=== PATIENT | female | born 1930 | race Caucasian/White ===

== ENCOUNTER 2016-08-23 18:45 | Emergency (ER) | payer MEDICARE, BC ==
[2016-08-23 18:45] VITALS: BMI 23.6
--- NOTE | 2016-08-23 20:26 | C.PDOC ---
History Of Present Illness 85 y/o female presents to the ED for evaluation of pain and itching to the inside and outside of left ear which began around 3 days ago. Patient also reports pain radiating to the side of her neck. She denies fever, chills, recent trauma/injury. Time Seen by Provider: 08/23/16 19:37 Chief Complaint (Nursing): ENT Problem History Per: Patient History/Exam Limitations: None Onset/Duration Of Symptoms: Days (3) Current Symptoms Are (Timing): Still Present Quality (Ear): Pain W/Touch Past Medical History Reviewed: Historical Data, Nursing Documentation, Vital Signs Vital Signs: Last Vital Signs Temp 97.6 F 08/23/16 20:30 Pulse 65 08/23/16 20:30 Resp 20 08/23/16 20:30 BP 171/82 H 08/23/16 20:30 Pulse Ox 99 08/23/16 22:48 - Medical History PMH: Atrial Fibrillation, HTN, Hypercholesterolemia Denies: Chronic Kidney Disease Family History: States: Unknown Family Hx - Social History Hx Tobacco Use: No Hx Alcohol Use: No Hx Substance Use: No - Immunization History Hx Tetanus Toxoid Vaccination: No Hx Influenza Vaccination: Yes Hx Pneumococcal Vaccination: No Review Of Systems Constitutional: Negative for: Fever, Chills ENT: Positive for: Ear Pain (left ) Musculoskeletal: Positive for: Neck Pain Physical Exam - Physical Exam Appears: Non-toxic, No Acute Distress Skin: Normal Color, Warm, Dry Head: Atraumatic, Normacephalic Eye(s): bilateral: Normal Inspection Ear(s): Left: Other (tm appears normal no erythema in canal., small area dry skin in canal, pinna/helix appear normal. ), Right: Normal Nose: Normal, No Discharge Oral Mucosa: Moist Throat: Normal, No Erythema, No Exudate Neck: Normal ROM, Supple Extremity: Normal ROM Gait: Steady ED Course And Treatment O2 Sat by Pulse Oximetry: 99 (on RA) Pulse Ox Interpretation: Normal Medical Decision Making Medical Decision Making: Pt is resting comfortably and showing no signs of distress. Patient is stable for discharge with Rx and is advised to f/u with her PMD within 1-2 days for further evaluation. Disposition Counseled Patient/Family Regarding: Need For Followup, Rx Given - Disposition Referrals: Lisa De La Cruz MD [Staff Provider] - Disposition: HOME/ ROUTINE Disposition Time: 20:22 Condition: STABLE Additional Instructions: Follow up with your doctor on Thursday. Do not stick anything in ear. Apply hydrocortisone cream to outside of ear to help with itch and take Claritin as directed. Prescriptions: Hydrocortisone 1% Cream [Cortizone 1% Cream] 30 gm TOP BID #1 tube Loratadine [Claritin] 10 mg PO DAILY #10 tab - Clinical Impression Clinical Impression: Ear itching - PA / POLE CUTTER / Resident Statement MD/DO has reviewed & agrees with the documentation as recorded. - Scribe Statement The provider has reviewed the documentation as recorded by the Scribe (Alda Panda) All medical record entries made by the Scribe were at my direction and personally dictated by me. I have reviewed the chart and agree that the record accurately reflects my personal performance of the history, physical exam, medical decision making, and the department course for this patient. I have also personally directed, reviewed, and agree with the discharge instructions and disposition.
[2016-08-23 20:32] VITALS: BP 171/82; PULSE 65; RESP 20; TEMP 97.6
[2016-08-23 20:41] VITALS: O2SAT 99
== END 2016-08-23 20:33 | disposition home or self-care (01) ==
LOC: C.ER 18:45
DX: L29.9 Pruritus, unspecified (principal)

== ENCOUNTER 2016-10-12 08:54 | Emergency (ER) | payer MEDICARE, BC ==
[2016-10-12 08:55] VITALS: BMI 23.6
[2016-10-12 10:08] VITALS: TEMP 97.5; O2SAT 99
[2016-10-12 10:15] VITALS: BP 122/74; PULSE 78; RESP 16
== END 2016-10-12 10:15 | disposition home or self-care (01) ==
LOC: C.ER 08:54
DX: S69.92XA Unspecified injury of left wrist, hand and finger(s), initial encounter (principal); X58.XXXA Exposure to other specified factors, initial encounter; Y93.89 Activity, other specified; Y92.009 Unspecified place in unspecified non-institutional (private) residence as the place of occurrence of the external cause

== ENCOUNTER 2017-09-13 22:27 | Emergency (ER) | payer MEDICARE, BC ==
[2017-09-13 22:28] VITALS: BMI 23.6
[2017-09-13 22:44] VITALS: RESP 18
[2017-09-13] MEDS ORDERED: Oxycodone/Acetaminophen 5/325 mg Tab PO STA (23:15)
--- NOTE | 2017-09-13 23:15 | C.PDOC ---
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 Patient reports she does not need any assistance ambulating. Patient states that while coming down stairs she misses the last step, falling and landing on her left hip. Patient is unable to bear weight on her left hip. Patient is also c/o mid upper back pain. Patient denies LOC, headache, head injury, nausea, vomit, dizziness, blurry vision, weakness, numbness. Time Seen by Provider: 09/13/17 23:11 Chief Complaint (Nursing): Lower Extremity Problem/Injury History Per: Patient History/Exam Limitations: no limitations Onset/Duration Of Symptoms: Hrs Current Symptoms Are (Timing): Still Present Recent travel outside of the [place]: No Additional History Per: Patient - Hip Description Of Injury: Fell Currently Unable To: Bear Weight Past Medical History Reviewed: Historical Data, Nursing Documentation, Vital Signs Vital Signs: Last Vital Signs Temp 98.1 F 09/14/17 01:53 Pulse 72 09/14/17 01:53 Resp 18 09/14/17 01:53 BP 166/76 H 09/14/17 01:53 Pulse Ox 98 09/14/17 01:53 - Medical History PMH: Atrial Fibrillation, CVA (20 years ago), HTN, Hypercholesterolemia Denies: Chronic Kidney Disease Surgical History: No Surg Hx Family History: States: Unknown Family Hx - Social History Hx Tobacco Use: No Hx Alcohol Use: No Hx Substance Use: No - Immunization History Hx Tetanus Toxoid Vaccination: No Hx Influenza Vaccination: Yes (2016) Hx Pneumococcal Vaccination: No Review Of Systems Constitutional: Negative for: Fever, Chills Eyes: Negative for: Vision Change Cardiovascular: Negative for: Chest Pain, Palpitations Respiratory: Negative for: Cough, Shortness of Breath Gastrointestinal: Negative for: Vomiting, Abdominal Pain Musculoskeletal: Positive for: Back Pain, Leg Pain Skin: Negative for: Rash Neurological: Negative for: Weakness, Numbness Physical Exam - Physical Exam Appears: Non-toxic, No Acute Distress Skin: Normal Color, Warm, Dry Head: Atraumatic, Normacephalic Eye(s): bilateral: Normal Inspection, PERRL, EOMI Oral Mucosa: Moist Neck: Normal ROM, No Midline Cervical Tenderness, Supple Chest: Symmetrical Cardiovascular: Rhythm Regular Respiratory: Normal Breath Sounds, No Rales, No Rhonchi, No Wheezing Gastrointestinal/Abdominal: Soft, No Tenderness, No Guarding, No Rebound Back: Paraspinal Tenderness (thoracic) Extremity: No Normal ROM (left hip due to pain), Tenderness (medial aspect of left hip), Capillary Refill (< 2 seconds), No Swelling, Other (unable to lift left thihg off bed due to pain) Pulses: Left Dorsalis Pedis: Normal, Right Dorsalis Pedis: Normal Neurological/Psych: Oriented x3, Normal Speech, Normal Motor, Normal Sensation Gait: Unable To Assess ED Course And Treatment - Laboratory Results Result Diagrams: 09/14/17 00:10 09/14/17 00:10 O2 Sat by Pulse Oximetry: 99 (ON RA) Pulse Ox Interpretation: Normal - CT Scan/US Ct hip Other Rad Studies (CT/US): Read By Radiologist, Radiology Report Reviewed CT/US Interpretation: EXAM: CT Left Lower Extremity Without Intravenous Contrast, Hip. EXAM DATE/TIME: 09/13/2017 11:51 PM. CLINICAL HISTORY: 86 years old, female; Injury or trauma; Fall; Initial encounter; Sprain or strain; Hip; Left; Additional. info: Pain. TECHNIQUE: Axial computed tomography images of the left hip without intravenous contrast. All CT scans at this. facility use at least one of these dose optimization techniques: automated exposure control; mA. and/or kV adjustment per patient size (includes targeted exams where dose is matched to clinical. indication); or iterative reconstruction. COMPARISON: No relevant prior studies available. FINDINGS: Bones/joints: Few calcifications or ossific fragments adjacent the left ischial tuberosity may reflect. degenerative changes or an avulsion fracture. No dislocation. Soft tissues: Unremarkable. IMPRESSION: Few calcifications or ossific fragments adjacent the left ischial tuberosity may reflect degenerative. changes or an avulsion fracture. Otherwise no acute left hip findings. Thank you for allowing us to participate in the care of your patient. Dictated and Authenticated by: Alex Alegria MD. 09/14/2017 1: 09 AM Eastern Time ([place] & [place]) Medical Decision Making Medical Decision Making: Impression: rule out hip fracture, pelvic fracture Plan: * CT hip * EKG * Labs * Percocet 1 tab PO * IV fluids * UA * Left hip X-Ray Patient is able to walk in the ED with no difficulty ambulating. Patient will be D/C home with hip contusion and pain medications Disposition - Disposition Referrals: Lisa De La Cruz MD [Primary Care Provider] - Disposition: HOME/ ROUTINE Disposition Time: 03:13 Condition: FAIR Prescriptions: oxyCODONE/Acetaminophen 1/2TAB [Percocet 5-325 mg HALF TAB] 0.5 ea PO QID PRN # 12 tab PRN Reason: Pain, Mild (1-3) Instructions: Hip Pointer, Contusion (DC) Forms: [email or web address] (Slovenian) Print Language: CHINESE - Clinical Impression Clinical Impression: Tension headache, Dizziness of unknown cause - Scribe Statement The provider has reviewed the documentation as recorded by the Scribe Rickie Moore All medical record entries made by the Scribe were at my direction and personally dictated by me. I have reviewed the chart and agree that the record accurately reflects my personal performance of the history, physical exam, medical decision making, and the department course for this patient. I have also personally directed, reviewed, and agree with the discharge instructions and disposition.
[2017-09-13] MEDS ORDERED: Oxycodone/Acetaminophen 5/325 mg Tab ONE (23:45)
[2017-09-13] MEDS ORDERED: Sodium Chloride 0.9% 1,000 ML IV ONE (23:52)
[2017-09-14 00:13] LABS: BASO % 0.5 % (0.0-2.0); EOS % 0.3 % (0.0-4.0); HEMOGLOBIN 12.3 g/dL (11.0-16.0); LYMPH # 0.8 K/uL (1.0-4.3); LYMPH % 10.1 % (20.0-40.0); MEAN CELL VOLUME 90.1 fL (81.0-99.0); MEAN CORPUSCULAR HEMOGLOBIN 30.9 pg (27.0-31.0); MEAN CORPUSCULAR HGB CONC 34.3 g/dL (33.0-37.0); MEAN PLATELET VOLUME 8.2 fL (7.2-11.7); MONO # 0.5 K/uL (0.0-0.8); MONO % 5.8 % (0.0-10.0); NEUT # 6.7 K/uL (1.8-7.0); NEUT % 83.3 % (50.0-75.0); RBC 3.99 Mil/uL (3.80-5.20)
[2017-09-14 00:25] LABS: ALB/GLOB RATIO 1.6 (1.0-2.1); ALBUMIN 4.5 g/dL (3.5-5.0); CALCIUM 8.9 mg/dl (8.6-10.4)
[2017-09-14 01:54] VITALS: BP 166/76; PULSE 72; TEMP 98.1
[2017-09-14 03:14] VITALS: O2SAT 99
--- NOTE | 2017-09-14 10:32 | CT ---
CT left hip History: Hip pain. Comparison: None available. Technique: Real-time sonography was performed through the left hip without the use of intravenous contrast. Subsequently, sagittal and coronal reformatted images were obtained. This CT exam was performed using one or more of the following dose reduction techniques: Automated exposure control, adjustment of the mA and/or kV according to patient size, and/or use of iterative reconstruction technique. Findings: Left hip: Moderate degenerative changes with joint space narrowing and subchondral sclerosis. No evidence for acute displaced fracture or dislocation. Productive change and or enthesopathic change noted adjacent to the greater tuberosity. Limited evaluation of the remainder of the bony pelvis demonstrates productive change at the level pubic symphysis. In addition, there is prominent productive change with calcifications and or ossific fragments adjacent to the left ischial tuberosity which may be the sequelae of degenerative changes; however, avulsion injury cannot entirely be excluded. This may be better evaluated MRI if clinically indicated. Impression: Degenerative changes of the left hip. Prominent productive change with calcifications and or ossific fragments adjacent to the left ischial tuberosity which may be the sequelae of degenerative changes; however, avulsion injury cannot entirely be excluded. This may be better evaluated MRI if clinically indicated. These findings were preliminarily reported at 1:09 a.m. on 09/14/[address] Alex Alegria from [facility].
--- NOTE | 2017-09-14 10:46 | RAD ---
PROCEDURE: Radiographs of the pelvis and bilateral hips HISTORY: trauma COMPARISON: Pelvis and right hip radiographs dated 12/24/2012. FINDINGS: BONES: Pelvis: Unremarkable. Right hip:Unremarkable. Left hip:Unremarkable. JOINTS: Right hip: Hip narrowing. Left hip: Hip narrowing. Sacroiliac Joints: Unremarkable. Pubic symphysis: Unremarkable. SOFT TISSUES: Normal. OTHER FINDINGS: None. IMPRESSION: No acute fracture. Bilateral hip narrowing.
== END 2017-09-14 01:53 | disposition home or self-care (01) ==
LOC: SUPCPDRO 22:27 → C.ER 22:27
DX: M25.552 Pain in left hip (principal); M54.5 Low back pain; W10.9XXA Fall (on) (from) unspecified stairs and steps, initial encounter
CPT/HCPCS: 73521; 73700; 80053; 85025; 99285; J7030

== ENCOUNTER 2017-09-21 10:13 | Emergency (ER) | payer MEDICARE, BC ==
[2017-09-21 10:13] VITALS: BMI 23.6
[2017-09-21 10:23] VITALS: RESP 18
--- NOTE | 2017-09-21 11:18 | C.PDOC ---
History Of Present Illness 86 year old female sent in by Dr. De La Cruz for a an MRI. Patient was unable to get make it to outpatient MRI because she could not walk due to pain so she was referred to the ER. Denies weakness or numbness. Patient is s/p trip and fall on step, was seen on 09/17/17 where she had a negative hip x-ray. Time Seen by Provider: 09/21/17 11:09 Chief Complaint (Nursing): Hip Pain History Per: Patient History/Exam Limitations: no limitations Onset/Duration Of Symptoms: Days Current Symptoms Are (Timing): Still Present Recent travel outside of the [place]: No - Hip Description Of Injury: Fell, Tripped Past Medical History Reviewed: Historical Data, Nursing Documentation, Vital Signs Vital Signs: Last Vital Signs Temp 97.9 F 09/21/17 10:21 Pulse 71 09/21/17 10:21 Resp 18 09/21/17 10:21 BP 118/57 L 09/21/17 10:21 Pulse Ox 97 09/21/17 11:24 - Medical History PMH: Atrial Fibrillation, CVA (20 years ago), HTN, Hypercholesterolemia Family History: States: Unknown Family Hx - Social History Hx Tobacco Use: No Hx Alcohol Use: No Hx Substance Use: No - Immunization History Hx Tetanus Toxoid Vaccination: No Hx Influenza Vaccination: Yes (2016) Hx Pneumococcal Vaccination: No Review Of Systems Constitutional: Negative for: Fever, Chills Gastrointestinal: Negative for: Nausea, Vomiting Musculoskeletal: Positive for: Other (Hip pain) Neurological: Negative for: Weakness, Numbness Physical Exam - Physical Exam Appears: Non-toxic Skin: Normal Color, Warm, Dry Head: Atraumatic, Normacephalic Eye(s): bilateral: Normal Inspection Oral Mucosa: Moist Neck: Normal, Supple Chest: Symmetrical, No Tenderness Cardiovascular: Rhythm Regular Respiratory: Normal Breath Sounds, No Rales, No Rhonchi, No Wheezing Gastrointestinal/Abdominal: Soft, No Tenderness Back: No Vertebral Tenderness, No Paraspinal Tenderness Neurological/Psych: Oriented x3, Normal Speech ED Course And Treatment O2 Sat by Pulse Oximetry: 97 (Room air) Pulse Ox Interpretation: Normal Medical Decision Making Medical Decision Making: Plan: * MRI Disposition Counseled Patient/Family Regarding: Diagnosis, Need For Followup - Disposition Disposition: HOME/ ROUTINE Disposition Time: 11:47 Condition: STABLE Forms: [employer] (Chinese) - Clinical Impression Clinical Impression: Hip pain - Scribe Statement The provider has reviewed the documentation as recorded by the Scribe Jae Garland All medical record entries made by the Scribe were at my direction and personally dictated by me. I have reviewed the chart and agree that the record accurately reflects my personal performance of the history, physical exam, medical decision making, and the department course for this patient. I have also personally directed, reviewed, and agree with the discharge instructions and disposition. Physician Patient Turnover Patient Signed Over To: Nicko Phillips Handoff Comments: left hip pain, pending MRI
[2017-09-21 13:33] VITALS: BP 146/76; PULSE 60; TEMP 97.6; O2SAT 96
--- NOTE | 2017-09-21 13:48 | MRI ---
MRI right hip History: Hip pain. Injury. Comparison: CT left hip dated 09/14/2017 Technique: Multi-echo multiplanar sequences were performed through the right hip without the use of intravenous contrast. Findings: Limited evaluation of the bony pelvis demonstrates signal abnormality with reactive edema and patchy decreased T1 signal seen at the level of the left superior pubic bone near the pubic symphysis as well as within the mid inferior left pubic bone suggestive for nondisplaced fractures. Adjacent reactive edema within the musculature at that level suggestive for muscle strain and or partial tearing. Correlation with left hip MRI as well as CT scan of the bony pelvis be helpful to better evaluate the osseous anatomy at this level. Mild reactive edema with some patchy decreased T1 signal and increased STIR signal noted at the level of the left iliac bone near the left SI joint. This is nonspecific. Osseous injury at this level cannot be excluded. Correlation with bony pelvic MRI may be helpful for further evaluation of this region if clinically indicated. Right hip: Moderate degenerative changes with joint space narrowing as well as cartilage thinning and loss of the right hip. Fraying with increased signal at the undersurface of the right anterior acetabular labrum suggestive for a tear. Right iliopsoas, hamstring tendon origin, and rectus femoris tendon attachments appear preserved. Moderate insertional tendinopathy of the right gluteus tendon attachments on the greater trochanter. Small right hip joint effusion. Limited evaluation of the left hip demonstrates a moderate left hip joint effusion with associated moderate insertional tendinopathy of the left gluteus tendon attachments on the greater trochanter. Moderate degenerative changes of the left hip with joint space narrowing and cartilage thinning. Degenerative changes in the lower lumbar spine. Impression: 1. Limited evaluation of the bony pelvis demonstrates signal abnormality with reactive edema and patchy decreased T1 signal seen at the level of the left superior pubic bone near the pubic symphysis as well as within the mid inferior left pubic bone suggestive for nondisplaced fractures. Adjacent reactive edema within the musculature at that level suggestive for muscle strain and or partial tearing. Correlation with left hip MRI as well as CT scan of the bony pelvis be helpful to better evaluate the osseous anatomy at this level. 2. Mild reactive edema with some patchy decreased T1 signal and increased STIR signal noted at the level of the left iliac bone near the left SI joint. This is nonspecific. Osseous injury at this level cannot be excluded. Correlation with bony pelvic MRI may be helpful for further evaluation of this region if clinically indicated. 3. Moderate degenerative changes with joint space narrowing as well as cartilage thinning and loss of the right hip. 4. Fraying with increased signal at the undersurface of the right anterior acetabular labrum suggestive for a tear. 5. Moderate insertional tendinopathy of the right gluteus tendon attachments on the greater trochanter. 6. Small right hip joint effusion. 7. Limited evaluation of the left hip demonstrates a moderate left hip joint effusion with associated moderate insertional tendinopathy of the left gluteus tendon attachments on the greater trochanter. Moderate degenerative changes of the left hip with joint space narrowing and cartilage thinning. 8. Degenerative changes in the lower lumbar spine. These findings were discussed with Dr. Mclean at 1:38 p.m. on 09/21/2017.
== END 2017-09-21 14:48 | disposition home or self-care (01) ==
LOC: C.ER 10:13
DX: S32.509 Unspecified fracture of unspecified pubis (principal); W01.0XXD Fall on same level from slipping, tripping and stumbling without subsequent striking against object, subsequent encounter

== ENCOUNTER 2018-01-06 11:41 | Observation (INO) | payer MEDICARE, BC ==
[2018-01-06 12:10] VITALS: BMI 27.1
--- NOTE | 2018-01-06 12:55 | C.PDOC ---
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 Patient is on Coumadin. Denies loc, headache, vision changes, na usea, vomiting, change in sensation or any other complaints at this time. - HPI Time Seen by Provider: 01/06/18 12:06 Chief Complaint (Nursing): Trauma History Per: Patient History/Exam Limitations: no limitations Onset/Duration Of Symptoms: Days Past Medical History Reviewed: Historical Data, Nursing Documentation, Vital Signs Vital Signs: Last Vital Signs Temp 97.5 F L 01/06/18 11:49 Pulse 67 01/06/18 11:49 Resp 18 01/06/18 11:49 BP 181/70 H 01/06/18 11:49 Pulse Ox 100 01/06/18 11:49 - Medical History PMH: Atrial Fibrillation, CVA (20 years ago), HTN, Hypercholesterolemia Surgical History: No Surg Hx Family History: States: No Known Family Hx - Social History Hx Tobacco Use: No Hx Alcohol Use: No Hx Substance Use: No - Immunization History Hx Tetanus Toxoid Vaccination: No Hx Influenza Vaccination: Yes (2016) Hx Pneumococcal Vaccination: Yes Review Of Systems Constitutional: Negative for: Fever, Weakness Eyes: Negative for: Vision Change ENT: Negative for: Ear Pain, Ear Discharge Cardiovascular: Negative for: Chest Pain, Palpitations Respiratory: Negative for: Cough Gastrointestinal: Negative for: Nausea, Vomiting Genitourinary: Negative for: Dysuria Skin: Positive for: Other (abrasions to forehead, nose and right cheek). Negative for: Rash Neurological: Negative for: Weakness, Numbness, Dizziness Physical Exam - Physical Exam Appears: Non-toxic, No Acute Distress Skin: Warm, Dry, No Rash Head: Abrasion (right forehead and right cheek), No Laceration, Other (No blount or raccoon sign) Eye(s): bilateral: Normal Inspection, PERRL, EOMI Ear(s): Bilateral: Normal (No hemotympanum) Nose: No Deformity, Tenderness (nasal bridge), Other (swelling and ecchymosis to nasal bridge. Multiple abrasions to nasal bridge) Oral Mucosa: Moist Throat: No Erythema, No Exudate Neck: Normal ROM, Supple Chest: Symmetrical, No Tenderness Cardiovascular: Rhythm Regular, No Friction Rub, No Murmur Respiratory: Normal Breath Sounds, No Rales, No Rhonchi, No Wheezing Gastrointestinal/Abdominal: Soft, No Tenderness, No Guarding, No Rebound Back: Normal Inspection, No CVA Tenderness Extremity: Normal ROM, No Swelling Neurological/Psych: Oriented x3, Normal Speech, Normal Cognition, Normal Cranial Nerves, Normal Motor, Normal Sensation Gait: Steady ED Course And Treatment - Laboratory Results Result Diagrams: 01/06/18 13:07 01/06/18 13:07 O2 Sat by Pulse Oximetry: 100 (RA) Pulse Ox Interpretation: Normal Medical Decision Making Medical Decision Making: Case was discussed with Dr. De La Cruz who states that Dr. Vasquez is coverin. The case was discussed with Dr. Vasquez who agrees to admit the patient to his service for head injury obseration as the patient is on Coumadin and should have a repeat scan within 6-8 hours. 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 - Scribe Statement The provider has reviewed the documentation as recorded by the Loydibmaye Deleon All medical record entries made by the Loydibmaye were at my direction and personally dictated by me. I have reviewed the chart and agree that the record accurately reflects my personal performance of the history, physical exam, medical decision making, and the department course for this patient. I have also personally directed, reviewed, and agree with the discharge instructions and disposition.
[2018-01-06 13:23] LABS: ALB/GLOB RATIO 1.4 (1.0-2.1); ALBUMIN 4.8 g/dL (3.5-5.0); BASO % 0.5 % (0.0-2.0); CALCIUM 9.4 mg/dl (8.6-10.4); EOS # 0.1 K/uL (0.0-0.7); EOS % 1.9 % (0.0-4.0); HEMOGLOBIN 14.2 g/dL (11.0-16.0); LYMPH # 1.4 K/uL (1.0-4.3); MEAN CELL VOLUME 90.2 fL (81.0-99.0); MEAN CORPUSCULAR HEMOGLOBIN 30.8 pg (27.0-31.0); MEAN CORPUSCULAR HGB CONC 34.2 g/dL (33.0-37.0); MEAN PLATELET VOLUME 8.2 fL (7.2-11.7); MONO # 0.4 K/uL (0.0-0.8); MONO % 5.9 % (0.0-10.0); NEUT # 4.3 K/uL (1.8-7.0); NEUT % 69.7 % (50.0-75.0); NRBC % 0.1 % (0.0-2.0); RBC 4.62 Mil/uL (3.80-5.20); RED CELL DISTRIBUTION WIDTH 14.6 % (11.5-14.5); WHITE BLOOD COUNT 6.2 K/uL (4.8-10.8)
[2018-01-06 13:48] LABS: PROTHROMBIN TIME 22.4 SECONDS (9.7-12.2)
--- NOTE | 2018-01-06 14:35 | CT ---
Date of service: 01/06/2018 PROCEDURE: CT HEAD WITHOUT CONTRAST. HISTORY: head injury, r/o bleed COMPARISON: None available. TECHNIQUE: Axial computed tomography images were obtained through the head/brain without intravenous contrast. Radiation dose: Total exam DLP = 835.36 mGy-cm. This CT exam was performed using one or more of the following dose reduction techniques: Automated exposure control, adjustment of the mA and/or kV according to patient size, and/or use of iterative reconstruction technique. FINDINGS: HEMORRHAGE: No intracranial hemorrhage. BRAIN: There are moderate chronic microangiopathic changes. There is an old infarction in the left occipital lobe and an old infarction in the left cerebellar hemisphere with there is no mass, mass effect or abnormal extra-axial fluid collection. There is no territorial infarction. The midline sagittal structures are normal.There are coarse atherosclerotic calcifications in the cavernous carotid arteries. VENTRICLES: There is mild age-related global parenchymal volume loss and proportionate enlargement of the ventricles and cortical sulci. CALVARIUM: There is no calvarial fracture or extracranial soft tissue swelling. PARANASAL SINUSES: Predominantly clear. MASTOID AIR CELLS: The right mastoid air cells are underdeveloped. The left mastoid air cells are normal. OTHER FINDINGS: None. IMPRESSION: No acute intracranial abnormality. Moderate chronic microangiopathic changes and mild age-related global parenchymal volume loss. 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
--- NOTE | 2018-01-06 14:40 | CT ---
Date of service: 01/06/2018 PROCEDURE: CT MAXILLOFACIAL BONES WITHOUT CONTRAST HISTORY: fall, facial injury to nose and right maxillar COMPARISON: None available. TECHNIQUE: Contiguous axial CT images of the maxillofacial bones were obtained. Coronal and sagittal reformats were generated. Radiation dose: Total exam DLP = 730.8 mGy-cm. This CT exam was performed using one or more of the following dose reduction techniques: Automated exposure control, adjustment of the mA and/or kV according to patient size, and/or use of iterative reconstruction technique. FINDINGS: NASAL BONES: There is an acute comminuted mildly displaced fracture in the right nasal bone. No acute fracture in the left nasal bone. There is right nasal soft tissue swelling. ORBITS: No acute orbital fracture. The globes are symmetric. No evidence of intraconal or extraconal hemorrhage. The lens are symmetric. There is moderate right periorbital soft tissue swelling.. PARANASAL SINUSES/ MASTOIDS: Clear. MAXILLA: No acute maxillofacial fracture. MANDIBLE/ TEMPOROMANDIBULAR JOINTS: No acute fracture or dislocation. SKULL BASE: Unremarkable. TEMPORAL BONES: Middle ears and mastoid grossly unremarkable. OTHER FINDINGS: None. IMPRESSION: 1. Acute comminuted mildly displaced right nasal bone fracture with overlying soft tissue swelling. 2. No acute orbital or maxillofacial fracture. 3. Moderate right periorbital soft tissue swelling.
--- NOTE | 2018-01-06 14:48 | CT ---
Date of service: 01/06/2018 PROCEDURE: CT Cervical Spine without contrast HISTORY: Neck injury COMPARISON: None available. TECHNIQUE: Axial computed tomography images were obtained of the cervical spine without the use of intravenous contrast. Coronal and sagittal reformatted images were created and reviewed. Radiation dose: Total exam DLP = 435.39 mGy-cm. This CT exam was performed using one or more of the following dose reduction techniques: Automated exposure control, adjustment of the mA and/or kV according to patient size, and/or use of iterative reconstruction technique. FINDINGS: VERTEBRAE: There is severe diffuse bone demineralization. There is degenerative 2 mm retrolisthesis of C2 on C3. There is normal cervical lordosis. There is no acute fracture or traumatic anterior listhesis. A focal area of sclerosis in the posterior superior C6 vertebral body is statistically most compatible with a bone island. The craniocervical junction is normal. 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 DISCS/SPINAL CANAL/NEURAL FORAMINA: There is multilevel degenerative disc disease due to combination of disc osteophyte complexes, uncovertebral joint hypertrophy and multilevel facet arthropathy, worse at C3-4 with moderate to severe right and mild left neural foraminal narrowing. No spinal canal stenosis. PARASPINAL SOFT TISSUES: The paraspinous soft tissues are normal. OTHER FINDINGS: No prevertebral soft tissue thickening. No apical pneumothorax. IMPRESSION: No acute fracture or traumatic anterior listhesis.
[2018-01-06 16:42] VITALS: RESP 20
[2018-01-07 06:56] LABS: BASO % 0.6 % (0.0-2.0); EOS # 0.1 K/uL (0.0-0.7); EOS % 1.2 % (0.0-4.0); HEMOGLOBIN 13.2 g/dL (11.0-16.0); LYMPH # 1.3 K/uL (1.0-4.3); LYMPH % 22.3 % (20.0-40.0); MEAN CELL VOLUME 89.3 fL (81.0-99.0); MEAN CORPUSCULAR HEMOGLOBIN 31.2 pg (27.0-31.0); MEAN CORPUSCULAR HGB CONC 34.9 g/dL (33.0-37.0); MEAN PLATELET VOLUME 8.2 fL (7.2-11.7); MONO # 0.5 K/uL (0.0-0.8); MONO % 8.2 % (0.0-10.0); NEUT % 67.7 % (50.0-75.0); NRBC % 0.1 % (0.0-2.0); RBC 4.22 Mil/uL (3.80-5.20); RED CELL DISTRIBUTION WIDTH 14.6 % (11.5-14.5); WHITE BLOOD COUNT 5.9 K/uL (4.8-10.8)
[2018-01-07 07:04] LABS: INR 2.3; PROTHROMBIN TIME 25.1 SECONDS (9.7-12.2)
--- NOTE | 2018-01-07 07:40 | CP.PCM.HP ---
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 Patient currently taking Coumadin because of that close monitoring needed, and also needed to rule out any underlying brain bleeding. Patient is having no active bleeding now. There is an abrasion in the face noted. She is feeling well. Minimal pain noted. No chest pain. No shortness of breath. She is feeling otherwise well Past medical history: It fibrillation, CVA, hypertension, hypercholesteremia Surgery none Family history noncontributory Patient is a nonsmoker nonalcoholic Patient is otherwise functionally well On examination: Vital signs stable. Patient has aberration of the right maxillary area, also right periorbital ecchymosis noted. Tenderness present in the nasal area. Chest good air entry. Regular heart sound. Abdomen soft nontender no other ecchymotic changes noted Labs reviewed in Elevated INR noted therapeutic Blood pressure is elevated. Otherwise labs nonspecific Assessment: 87-year-old female admitted now with the fall and aberration. CAT scan of the head, maxillary sinuses facial sinuses, neck reviewed Nasal bone fracture, stable otherwise no active bleeding currently Atrial fibrillation stable on antegrade ablation History of CVA Hypertension and hypercholesteremia. We will continue to monitor. We will repeat the CAT scan tomorrow. If stable patient can be discharged. DVT GI prophylaxis and will follow-up the patient Present on Admission - Present on Admission Any Indicators Present on Admission: No History of DVT/PE: No History of Uncontrolled Diabetes: No Urinary Catheter: No Decubitus Ulcer Present: No Past Patient History - Infectious Disease Hx of Infectious Diseases: None - Past Medical History & Family History Past Medical History?: Yes - Past Social History Smoking Status: Never Smoked - CARDIAC Hx Atrial Fibrillation: Yes Hx Hypercholesterolemia: Yes Hx Hypertension: Yes - PULMONARY Hx Respiratory Disorders: No - NEUROLOGICAL Hx Neurological Disorder: Yes HX Cerebrovascular Accident: Yes - HEENT Hx HEENT Problems: No - RENAL Hx Chronic Kidney Disease: No - ENDOCRINE/METABOLIC Hx Endocrine Disorders: No - HEMATOLOGICAL/ONCOLOGICAL Hx Blood Disorders: No - INTEGUMENTARY Hx Dermatological Problems: No - MUSCULOSKELETAL/RHEUMATOLOGICAL Hx Musculoskeletal Disorders: No - GENITOURINARY/GYNECOLOGICAL Hx Genitourinary Disorders: No - PSYCHIATRIC Hx Substance Use: No - SURGICAL HISTORY Hx Surgeries: No - ANESTHESIA Hx Anesthesia: No Meds Allergies/Adverse Reactions: Allergies Allergy/AdvReac Type Severity Reaction Status Date / Time Penicillins Allergy Verified 09/21/17 10:23 Results - Vital Signs Recent Vital Signs: Last Vital Signs Temp 98.9 F 01/07/18 00:00 Pulse 64 01/07/18 00:00 Resp 20 01/07/18 00:00 BP 144/64 01/07/18 00:00 Pulse Ox 94 L 01/07/18 00:00 - Labs Result Diagrams: 01/07/18 06:45 01/06/18 13:07 Labs: Laboratory Results - last 24 hr 01/06/18 01/06/18 01/06/18 13:07 13:07 13:07 WBC 6.2 RBC 4.62 Hgb 14.2 Hct 41.7 MCV 90.2 MCH 30.8 MCHC 34.2 RDW 14.6 H Plt Count 228 MPV 8.2 Neut % (Auto) 69.7 Lymph % (Auto) 22.0 Ector % (Auto) 5.9 Eos % (Auto) 1.9 Baso % (Auto) 0.5 Neut # (Auto) 4.3 Lymph # (Auto) 1.4 Ector # (Auto) 0.4 Eos # (Auto) 0.1 Baso # (Auto) 0.0 PT 22.4 H INR 2.0 APTT 39 H Sodium 139 Potassium 4.1 Chloride 99 Carbon Dioxide 28 Anion Gap 16 BUN 20 H Creatinine 1.2 Est GFR ( Amer) 51 Est GFR (Non-Af Amer) 42 Random Glucose 97 Calcium 9.4 Total Bilirubin 1.3 AST 33 ALT 22 Alkaline Phosphatase 68 Total Protein 8.3 Albumin 4.8 Globulin 3.4 Albumin/Globulin Ratio 1.4 01/07/18 01/07/18 06:45 06:45 WBC 5.9 RBC 4.22 Hgb 13.2 Hct 37.7 MCV 89.3 MCH 31.2 H MCHC 34.9 RDW 14.6 H Plt Count 214 MPV 8.2 Neut % (Auto) 67.7 Lymph % (Auto) 22.3 Ector % (Auto) 8.2 Eos % (Auto) 1.2 Baso % (Auto) 0.6 Neut # (Auto) 4.0 Lymph # (Auto) 1.3 Ector # (Auto) 0.5 Eos # (Auto) 0.1 Baso # (Auto) 0.0 PT 25.1 H INR 2.3 APTT 36 H Sodium Potassium Chloride Carbon Dioxide Anion Gap BUN Creatinine Est GFR ( Amer) Est GFR (Non-Af Amer) Random Glucose Calcium Total Bilirubin AST ALT Alkaline Phosphatase Total Protein Albumin Globulin Albumin/Globulin Ratio
--- NOTE | 2018-01-07 07:46 | CP.PCM.PN ---
Subjective - Date & Time of Evaluation Date of Evaluation: 01/07/18 Time of Evaluation: 07:45 - Subjective Subjective: Patient is morning feeling well. She is having no pain. She is eating well otherwise. No chest pain or shortness of breath noted On examination: Vital signs noted. On the right face the wound dressing noted. No bleeding noted at this time. Today INR is slightly 2.3, repeated Chest good air entry regular heart sound nontender abdomen Patient will repeat the CT scan of the head today. If there is no evidence of any active bleeding patient can be discharged home today. Fall precautions advised. Physical therapy advised. Will discuss with the family about the discharge and will follow the patient. Patient will follow-up with Dr. De La Cruz Objective - Vital Signs/Intake and Output Vital Signs (last 24 hours): Temp Pulse Resp BP Pulse Ox 98.9 F 64 20 144/64 94 L 01/07/18 00:00 01/07/18 00:00 01/07/18 00:00 01/07/18 00:00 01/07/18 00:00 - Medications Medications: Current Medications Home Med (Warfarin [Coumadin]) 3 mg PO DAILY [facility] Losartan Potassium (Cozaar) 100 mg PO DAILY [facility] Rosuvastatin Calcium (Crestor) 2.5 mg PO HS [facility] - Labs Labs: 01/07/18 06:45 01/06/18 13:07 PT 25.1 SECONDS (9.7-12.2) H 01/07/18 06:45 INR 2.3 01/07/18 06:45 APTT 36 SECONDS (21-34) H 01/07/18 06:45
--- NOTE | 2018-01-07 09:25 | CT ---
Date of service: 01/07/2018 PROCEDURE: CT HEAD WITHOUT CONTRAST. HISTORY: fall COMPARISON: None available. TECHNIQUE: Axial computed tomography images were obtained through the head/brain without intravenous contrast. Radiation dose: Total exam DLP = 1075.9 mGy-cm. This CT exam was performed using one or more of the following dose reduction techniques: Automated exposure control, adjustment of the mA and/or kV according to patient size, and/or use of iterative reconstruction technique. FINDINGS: HEMORRHAGE: No intracranial hemorrhage. BRAIN: No mass effect or edema. Scattered focal lucencies in the subcortical and periventricular white matter suggestive for chronic microvascular ischemic change. Persistent encephalomalacia in the left occipital lobe suggestive for chronic infarct. Cerebellar atrophy. Chronic bilateral cerebellar infarcts. VENTRICLES: Unremarkable. No hydrocephalus. CALVARIUM: Unremarkable. Suggestion of chronic nasal bone deformities. Clinical correlation. PARANASAL SINUSES: Unremarkable as visualized. No significant inflammatory changes. MASTOID AIR CELLS: Unremarkable as visualized. No inflammatory changes. OTHER FINDINGS: Intracranial arterial calcifications. Motion artifact. IMPRESSION: No acute intracranial abnormality. Chronic infarcts in the left occipital lobe as well as the bilateral cerebellum. Chronic microvascular ischemic change. Probable chronic bilateral nasal bone deformities. If symptoms persist, consider correlation with MRI.
[2018-01-07] MEDS ORDERED: Pneumococcal 23-Valent Vaccine IM ONE (13:15)
--- NOTE | 2018-01-07 17:25 | CP.PCM.PN ---
Subjective - Date & Time of Evaluation Date of Evaluation: 01/07/18 Time of Evaluation: 17:25 Objective - Vital Signs/Intake and Output Vital Signs (last 24 hours): Temp Pulse Resp BP Pulse Ox 98.2 F 66 20 148/74 96 01/07/18 16:09 01/07/18 16:09 01/07/18 16:09 01/07/18 16:09 01/07/18 16:09 - Medications Medications: Current Medications Losartan Potassium (Cozaar) 100 mg PO DAILY [facility] Last Admin: 01/07/18 09:29 Dose: 100 mg Rosuvastatin Calcium (Crestor) 2.5 mg PO HS [facility] - Labs Labs: 01/07/18 06:45 01/06/18 13:07 PT 25.1 SECONDS (9.7-12.2) H 01/07/18 06:45 INR 2.3 01/07/18 06:45 APTT 36 SECONDS (21-34) H 01/07/18 06:45 Assessment and Plan - Assessment and Plan (Free Text) Assessment: 87 year old female, s/p fall at home yesterday seen and examined. Face with bruises, no active bleeding. Alert and orientedx3, no pain or distress. Seen by PT/OT, no acute issues, able to walk around. Discussed with DR DR Vasquez, plan to discharge home today. Await fo family to last picker.
[2018-01-07] MEDS: Rosuvastatin Calcium 2.5 mg Tab PO SCH (21:16)
--- NOTE | 2018-01-07 23:48 | CP.PCM.CON ---
History of Present Illness - History of Present Illness History of Present Illness: 87 tears old Female, well known to me for many years for a chronic atrial fibrillation, hypertension, hypercholesterolemia, hx of CVA, felt in her backyard and sustained abrasion of the forehead, nose, and cheeks. She denies any LOC, palpitation, dizziness. CT scan of the head x2 did not show any cerebral bleeding, but old lacunar infarcts. At the time of this examination, the patient is confused and slightlly agitated. Review of Systems - Psychiatric Psychiatric: Confusion Past Patient History - Infectious Disease Hx of Infectious Diseases: None - Past Medical History & Family History Past Medical History?: Yes - Past Social History Smoking Status: Never Smoked Alcohol: None Home Situation {Lives}: Alone Domestic Violence: Negative - CARDIAC Hx Atrial Fibrillation: Yes Hx Hypercholesterolemia: Yes Hx Hypertension: Yes - PULMONARY Hx Respiratory Disorders: No - NEUROLOGICAL HX Cerebrovascular Accident: Yes - HEENT Hx HEENT Problems: No - RENAL Hx Chronic Kidney Disease: No - ENDOCRINE/METABOLIC Hx Endocrine Disorders: No - HEMATOLOGICAL/ONCOLOGICAL Hx Blood Disorders: No - INTEGUMENTARY Hx Dermatological Problems: No - MUSCULOSKELETAL/RHEUMATOLOGICAL Hx Musculoskeletal Disorders: No - GENITOURINARY/GYNECOLOGICAL Hx Genitourinary Disorders: No - PSYCHIATRIC Hx Substance Use: No - SURGICAL HISTORY Hx Surgeries: No - ANESTHESIA Hx Anesthesia: No Meds Allergies/Adverse Reactions: Allergies Allergy/AdvReac Type Severity Reaction Status Date / Time Penicillins Allergy Verified 09/21/17 10:23 - Medications Medications: Current Medications Acetaminophen (Tylenol 325mg Tab) 650 mg PO Q6H PRN PRN Reason: Headache Last Admin: 01/07/18 19:56 Dose: 650 mg Losartan Potassium (Cozaar) 100 mg PO DAILY [facility] Last Admin: 01/07/18 09:29 Dose: 100 mg Rosuvastatin Calcium (Crestor) 2.5 mg PO HS [facility] Last Admin: 01/07/18 21:16 Dose: 2.5 mg Physical Exam - Constitutional Appears: Well, Confused - Head Exam Additional comments: Abrasions of the forehead, nose and cheek. - Eye Exam Eye Exam: Periorbital swelling Pupil Exam: PERRL - Neck Exam Neck exam: Positive for: Normal Inspection - Respiratory Exam Respiratory Exam: Clear to Auscultation Bilateral, NORMAL BREATHING PATTERN - Cardiovascular Exam Cardiovascular Exam: Irregular Rhythm - GI/Abdominal Exam GI & Abdominal Exam: Normal Bowel Sounds, Soft - Rectal Exam Rectal Exam: Deferred - Extremities Exam Extremities exam: Positive for: normal inspection - Back Exam Back exam: NORMAL INSPECTION - Neurological Exam Neurological exam: Alert Additional comments: Confused. - Psychiatric Exam Psychiatric exam: Agitated - Skin Skin Exam: Abrasion Additional comments: Abrasions of the forehead, nose and cheeks. Results - Vital Signs Recent Vital Signs: Last Vital Signs Temp 98.8 F 01/07/18 23:41 Pulse 62 01/07/18 23:41 Resp 20 01/07/18 23:41 BP 141/78 01/07/18 23:41 Pulse Ox 97 01/07/18 23:41 - Labs Result Diagrams: 01/07/18 06:45 01/06/18 13:07 Labs: Laboratory Results - last 24 hr 01/07/18 01/07/18 06:45 06:45 WBC 5.9 RBC 4.22 Hgb 13.2 Hct 37.7 MCV 89.3 MCH 31.2 H MCHC 34.9 RDW 14.6 H Plt Count 214 MPV 8.2 Neut % (Auto) 67.7 Lymph % (Auto) 22.3 Bennett % (Auto) 8.2 Eos % (Auto) 1.2 Baso % (Auto) 0.6 Neut # (Auto) 4.0 Lymph # (Auto) 1.3 Bennett # (Auto) 0.5 Eos # (Auto) 0.1 Baso # (Auto) 0.0 PT 25.1 H INR 2.3 APTT 36 H Assessment & Plan (1) Head concussion Status: Acute (2) Atrial fibrillation Assessment and Plan: PT/INR in therapeutic range. To resume Coumadin because head CT x 2 were negative for cerebral hemorrhage. Status: Chronic (3) Acute confusion Assessment and Plan: Probable from dementia. Status: Acute
[2018-01-08 07:12] LABS: INR 1.7; PROTHROMBIN TIME 18.9 SECONDS (9.7-12.2)
--- NOTE | 2018-01-08 07:22 | CP.PCM.CON ---
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 IC PATHOLOGY /SEIZURES WORK UP PER ORDER Past Patient History - Infectious Disease Hx of Infectious Diseases: None - Past Medical History & Family History Past Medical History?: Yes - Past Social History Smoking Status: Never Smoked Alcohol: None Home Situation {Lives}: Alone Domestic Violence: Negative - CARDIAC Hx Atrial Fibrillation: Yes Hx Hypercholesterolemia: Yes Hx Hypertension: Yes - PULMONARY Hx Respiratory Disorders: No - NEUROLOGICAL HX Cerebrovascular Accident: Yes - HEENT Hx HEENT Problems: No - RENAL Hx Chronic Kidney Disease: No - ENDOCRINE/METABOLIC Hx Endocrine Disorders: No - HEMATOLOGICAL/ONCOLOGICAL Hx Blood Disorders: No - INTEGUMENTARY Hx Dermatological Problems: No - MUSCULOSKELETAL/RHEUMATOLOGICAL Hx Musculoskeletal Disorders: No - GENITOURINARY/GYNECOLOGICAL Hx Genitourinary Disorders: No - PSYCHIATRIC Hx Substance Use: No - SURGICAL HISTORY Hx Surgeries: No - ANESTHESIA Hx Anesthesia: No Meds Allergies/Adverse Reactions: Allergies Allergy/AdvReac Type Severity Reaction Status Date / Time Penicillins Allergy Verified 09/21/17 10:23 - Medications Medications: Current Medications Acetaminophen (Tylenol 325mg Tab) 650 mg PO Q6H PRN PRN Reason: Headache Last Admin: 01/07/18 19:56 Dose: 650 mg Losartan Potassium (Cozaar) 100 mg PO DAILY [facility] Last Admin: 01/07/18 09:29 Dose: 100 mg Rosuvastatin Calcium (Crestor) 2.5 mg PO HS [facility] Last Admin: 01/07/18 21:16 Dose: 2.5 mg Results - Vital Signs Recent Vital Signs: Last Vital Signs Temp 98.8 F 01/07/18 23:41 Pulse 62 01/07/18 23:41 Resp 20 01/07/18 23:41 BP 141/78 01/07/18 23:41 Pulse Ox 97 01/07/18 23:41 - Labs Result Diagrams: 01/07/18 06:45 01/06/18 13:07 Labs: Laboratory Results - last 24 hr 01/08/18 06:54 PT 18.9 H D INR 1.7 D APTT 35 H
[2018-01-08 09:02] LABS: PROLACTIN 18.1 ng/mL (3.0-18.9)
[2018-01-08 09:17] LABS: FOLATE 8.9 ng/mL
--- NOTE | 2018-01-08 09:22 | CP.PCM.PN ---
Subjective - Date & Time of Evaluation Date of Evaluation: 01/08/18 Time of Evaluation: 09:21 - Subjective Subjective: pt is getting testing done eeg and mri pending seen by neuro and cardio will see her after the testing seems to be less combative than yesterday rested will f/u Objective - Vital Signs/Intake and Output Vital Signs (last 24 hours): Temp Pulse Resp BP Pulse Ox 98.9 F 70 20 156/76 H 98 01/08/18 08:08 01/08/18 08:08 01/08/18 08:08 01/08/18 08:08 01/08/18 08:08 - Medications Medications: Current Medications Acetaminophen (Tylenol 325mg Tab) 650 mg PO Q6H PRN PRN Reason: Headache Last Admin: 01/08/18 07:37 Dose: 650 mg Cyanocobalamin (Vitamin B12 1000 Mcg/Ml Inj) 1,000 mcg IM DAILY [facility] Losartan Potassium (Cozaar) 100 mg PO DAILY [facility] Last Admin: 01/07/18 09:29 Dose: 100 mg Rosuvastatin Calcium (Crestor) 2.5 mg PO HS [facility] Last Admin: 01/07/18 21:16 Dose: 2.5 mg Thiamine HCl (Vitamin B1 Tab) 100 mg PO DAILY [facility] - Labs Labs: 01/07/18 06:45 01/06/18 13:07 PT 18.9 SECONDS (9.7-12.2) H D 01/08/18 06:54 INR 1.7 D 01/08/18 06:54 APTT 35 SECONDS (21-34) H 01/08/18 06:54
--- NOTE | 2018-01-08 11:30 | VASCLAB ---
Date of service: 01/08/2018 PROCEDURE: Duplex ultrasound of the carotid and vertebral arteries. HISTORY: ASSESS STENOSIS COMPARISON: None available. TECHNIQUE: Grayscale and duplex Doppler evaluation of the cervical carotid and vertebral arteries were performed. The common carotid, carotid bifurcations and cervical ICA and proximal ECA were evaluated. The vertebral arteries were evaluated for gross patency and direction. FINDINGS: RIGHT CAROTID ARTERIES: Common Carotid Artery: Calcific plaque. Maximal flow velocity of 73.2 cm/s. Carotid Bifurcation: Calcific plaque. Internal Carotid Artery:Calcific plaque. Maximal flow velocity of 68.8 cm/s. External Carotid Artery (proximal branches): Elevated velocity. Maximal flow velocity of 217.8 cm/s. ICA/CCA Ratio: 0.9 LEFT CAROTID ARTERIES: Common Carotid Artery: Calcific plaque. Maximal flow velocity of 146.6 cm/s. Carotid Bifurcation: Calcific plaque. Internal Carotid Artery:Calcific plaque. Maximal flow velocity of 103.0 cm/s. External Carotid Artery (proximal branches): Elevated velocity. Maximal flow velocity of 288.6 cm/s. ICA/CCA Ratio: 1.5 VERTEBRAL ARTERIES: Right Vertebral Artery: Patent. Antegrade flow. Left Vertebral Artery: Patent. Antegrade flow. OTHER FINDINGS: No atherosclerotic calcification present IMPRESSION: Per NASCET criteria, less than 50 percent stenosis of the internal carotid arteries, bilaterally. Bilateral elevated peak systolic velocities involving the external carotid arteries.
[2018-01-08 11:46] LABS: FREE T4 2.19 ng/dL (0.78-2.19)
--- NOTE | 2018-01-08 12:32 | MRI ---
Date of service: 01/08/2018 PROCEDURE: MRI BRAIN WITHOUT CONTRAST HISTORY: STROKE COMPARISON: Noncontrast head CT from 01/07/2018 TECHNIQUE: Multiplanar, multisequence MR images of the brain were obtained without intravenous contrast enhancement. FINDINGS: HEMORRHAGE: None DWI: No evidence of an acute or early subacute infarction. BRAIN PARENCHYMA: There is cystic encephalomalacia and gliosis in the left parieto-occipital lobe. There are old infarctions in the left cerebellar hemisphere. There are moderate chronic microangiopathic changes. There is no mass, mass or abnormal extra-axial fluid collection. There is an empty sella. VENTRICLES: There is mild age-related global parenchymal volume loss and proportionate enlargement of the ventricles and cortical sulci. There is a right posterior fossa arachnoid granulation CRANIUM: Normal bone marrow signal pattern. ORBITS: Grossly unremarkable. PARANASAL SINUSES/MASTOIDS: Paranasal sinuses are predominantly clear. Small left mastoid effusion. VASCULAR SYSTEM: There are normal signal voids in the larger intracranial arteries. OTHER FINDINGS: None. IMPRESSION: 1. No acute intracranial abnormality. 2. Cystic encephalomalacia and gliosis in the left parieto-occipital lobe, sequela of remote [employer] territory infarction. 3. Old infarctions in the left cerebellar hemisphere. 4. Moderate chronic microangiopathic changes and mild age-related global parenchymal volume loss.
--- NOTE | 2018-01-08 12:56 | CT ---
Date of service: 01/08/2018 PROCEDURE: CT HEAD WITHOUT CONTRAST. HISTORY: fall COMPARISON: CT head dated 01/07/2018. TECHNIQUE: Axial computed tomography images were obtained through the head/brain without intravenous contrast. Radiation dose: Total exam DLP = 1040.46 mGy-cm. This CT exam was performed using one or more of the following dose reduction techniques: Automated exposure control, adjustment of the mA and/or kV according to patient size, and/or use of iterative reconstruction technique. FINDINGS: HEMORRHAGE: No intracranial hemorrhage. BRAIN: No mass effect or edema. Atrophy. Chronic microvascular ischemic changes. Old infarctions in the right occipital, left parieto-occipital and left cerebellar lobes. VENTRICLES: Prominent. No hydrocephalus. CALVARIUM: Unremarkable. PARANASAL SINUSES: Unremarkable as visualized. No significant inflammatory changes. MASTOID AIR CELLS: Unremarkable as visualized. No inflammatory changes. OTHER FINDINGS: None. IMPRESSION: No acute intracranial pathology. Age-related changes. Stable appearance of old bilateral infarctions. No significant interval change.
[2018-01-08] MEDS: Rosuvastatin Calcium 2.5 mg Tab PO SCH (21:07)
--- NOTE | 2018-01-08 23:58 | CP.PCM.PN ---
Subjective - Date & Time of Evaluation Date of Evaluation: 01/08/18 Time of Evaluation: 21:00 - Subjective Subjective: Patient no more confused. Has no complaint. Objective - Vital Signs/Intake and Output Vital Signs (last 24 hours): Temp Pulse Resp BP Pulse Ox 98.4 F 61 20 149/78 97 01/08/18 23:50 01/08/18 23:50 01/08/18 23:50 01/08/18 23:50 01/08/18 23:50 - Medications Medications: Current Medications Acetaminophen (Tylenol 325mg Tab) 650 mg PO Q6H PRN PRN Reason: Headache Last Admin: 01/08/18 21:07 Dose: 650 mg Cyanocobalamin (Vitamin B12 1000 Mcg/Ml Inj) 1,000 mcg IM DAILY [facility] Last Admin: 01/08/18 10:33 Dose: Not Given Losartan Potassium (Cozaar) 100 mg PO DAILY [facility] Last Admin: 01/08/18 10:27 Dose: 100 mg Rosuvastatin Calcium (Crestor) 2.5 mg PO HS [facility] Last Admin: 01/08/18 21:07 Dose: 2.5 mg Thiamine HCl (Vitamin B1 Tab) 100 mg PO DAILY [facility] Last Admin: 01/08/18 10:27 Dose: 100 mg - Labs Labs: 01/07/18 06:45 01/06/18 13:07 PT 18.9 SECONDS (9.7-12.2) H D 01/08/18 06:54 INR 1.7 D 01/08/18 06:54 APTT 35 SECONDS (21-34) H 01/08/18 06:54 - Constitutional Appears: Well, No Acute Distress - Head Exam Additional comments: Abrasions of the forehead, nose and cheeks. - Eye Exam Eye Exam: Periorbital swelling Pupil Exam: PERRL - ENT Exam ENT Exam: Normal Exam - Neck Exam Neck Exam: Normal Inspection - Respiratory Exam Respiratory Exam: Clear to Ausculation Bilateral, NORMAL BREATHING PATTERN - Cardiovascular Exam Cardiovascular Exam: Irregular Rhythm, Murmur - GI/Abdominal Exam GI & Abdominal Exam: Soft, Normal Bowel Sounds - Rectal Exam Rectal Exam: Deferred - Extremities Exam Extremities Exam: Normal Inspection - Back Exam Back Exam: NORMAL INSPECTION - Neurological Exam Neurological Exam: Alert, Awake, Oriented x3 - Psychiatric Exam Psychiatric exam: Anxious Assessment and Plan (1) Head concussion Status: Acute (2) Atrial fibrillation Assessment & Plan: To restart Warfarin. Status: Chronic (3) Acute confusion Status: Resolved
--- NOTE | 2018-01-09 04:01 | CON ---
DATE: 01/08/2018 DATE OF ADMISSION: 01/07/2018 ATTENDING PHYSICIAN: Laureano Vasquez MD LOCATION: Room #358, bed B. REASON FOR CONSULTATION: Change in mental status. CHIEF COMPLAINT: The patient was brought into [facility] following a fall at her home while she was cleaning the leaves in the backyard. From neurological point of view, I was called to evaluate her for further management. HISTORY OF PRESENTING ILLNESS: Ms Farida Tejeda is an 87-year-old [place] right-handed female. While she was cleaning the leaves in the backyard, she fell down and hit her head. No clear history of loss of consciousness at the scene. No history of witnessed tonic-clonic activities at the scene. However from the fall, she bruised her face. She was brought into the [facility] for further management. A initial CT of the head was done which was reported as negative for the intracerebral bleed. At present, she denies headache. No dizziness, no nausea or vomiting during this hospitalization. PAST MEDICAL HISTORY: Significant for atrial fibrillation, hypertension, dyslipidemia, and a stroke. ALLERGIES: NO KNOWN ALLERGIES. REVIEW OF SYSTEMS: Twelve-point system being reviewed. From neuro, status post fall and change in mental status. MEDICATIONS: Cozaar and Crestor. Coumadin on hold. PHYSICAL EXAMINATION: VITAL SIGNS: Blood pressure 141/78, mean arterial pressure of 99, respiratory rate 18, temperature 98.8, pulse rate 62 and irregular. NECK: Supple. No carotid bruits. HEART: Heart sounds are irregular. EXTREMITIES: No edema in legs. HEENT: The patient shows ecchymosis mainly on her right side of the orbit and nose region. Significant tenderness over the orbital region and maxillary region. No Rees sign. NEUROLOGIC EXAMINATION: MENTAL STATUS EXAMINATION: At this time, the patient is sitting on the potty chair. She knows her name, but she does not know where she is. She claims that that is her daughter's house. Living with her four grandkids. Speech is fluent, mostly in [place]. However, she can able to follow commands in [place]. She moves all four extremities against the gravity as per the command. CRANIAL NERVE EXAMINATION: Visual field responds to visual threat. Pupils reactive to light. Extraocular movement markedly decreased in all directions. No facial asymmetry. Hearing is significantly decreased on both sides. Tongue is midline. Good gag. MOTOR EXAMINATION: She could able to move all four extremities against the gravity. She could able to walk with minimal assistance. Deep tendon reflexes are absent. Plantars are mute. SENSORY EXAMINATION: Responded to pain symmetrically on both sides. No cortical sensory loss. COORDINATION: The patient does not cooperate. CONCLUSION: Ms. Britni Tejeda is presenting with post-concussion syndrome manifesting with change in mental status, has global cerebral dysfunction. This is probably from the fall, superimposed with her underlying senile dementia of Alzheimer type. However, other possible causes of dementia should be ruled out. The patient also had a history of stroke in the past. This is probably vascular dementia as well. Workup CT of the head being reviewed showed left posterior cerebral artery territory ischemia which is old in occipital lobe. Left cerebellar stroke as well with atrophy. Significant small vessel disease also noted. Blood workup: WBC 5.9, hemoglobin 13.2, hematocrit 37.7, platelet 214. PT 18.9, INR 1.7, PTT 35. Potassium 4.1, chloride 99, bicarbonate 28, BUN 20, creatinine 1.2. RECOMMENDATIONS: 1. MRI of the brain to rule out contusion versus ischemia or intracerebral bleed (delayed bleed). 2. Dementia workup. 3. EEG to rule out any paroxysmal activities. 4. Carotid Doppler. The patient should be kept in fall precaution and ambulation only assistance. The patient can be benefited with B1 and B12 supplements. Continue present management. The patient will be followed closely with you. Mane Petit MD
--- NOTE | 2018-01-09 09:28 | CP.PCM.PN ---
Subjective - Date & Time of Evaluation Date of Evaluation: 01/09/18 Time of Evaluation: 09:28 Objective - Vital Signs/Intake and Output Vital Signs (last 24 hours): Temp Pulse Resp BP Pulse Ox 98.2 F 67 20 139/74 97 01/09/18 07:00 01/09/18 07:00 01/09/18 07:00 01/09/18 07:00 01/09/18 07:00 - Medications Medications: Current Medications Acetaminophen (Tylenol 325mg Tab) 650 mg PO Q6H PRN PRN Reason: Headache Last Admin: 01/08/18 21:07 Dose: 650 mg Cyanocobalamin (Vitamin B12 1000 Mcg/Ml Inj) 1,000 mcg IM DAILY [facility] Last Admin: 01/08/18 10:33 Dose: Not Given Losartan Potassium (Cozaar) 100 mg PO DAILY [facility] Last Admin: 01/08/18 10:27 Dose: 100 mg Rosuvastatin Calcium (Crestor) 2.5 mg PO HS [facility] Last Admin: 01/08/18 21:07 Dose: 2.5 mg Thiamine HCl (Vitamin B1 Tab) 100 mg PO DAILY [facility] Last Admin: 01/08/18 10:27 Dose: 100 mg - Labs Labs: 01/07/18 06:45 01/06/18 13:07 PT 18.9 SECONDS (9.7-12.2) H D 01/08/18 06:54 INR 1.7 D 01/08/18 06:54 APTT 35 SECONDS (21-34) H 01/08/18 06:54 Assessment and Plan - Assessment and Plan (Free Text) Assessment: FOLLOW UP WITH DR PARR IN HIS OFFICE ----CALL FOR APPOITMENT CONTINUE HOME MEDICATION TAKE OVER THE COUNTER B COMPLEX VIT PER DR WHYTE RECOMMENDATION ( NEUROLOGY) ACTIVITY TOLERATED AND HOME PHYSICAL THERAPY TX AND EVAL CALL DR PARR OR GO TO THE EMERGENCY ROOM IF SYMPTOM RETURN OR WORSENING
[2018-01-09 12:55] VITALS: BP 157/83; PULSE 75; TEMP 98; O2SAT 96
--- NOTE | 2018-01-10 19:09 | EEG ---
DATE: 01/08/2018 This is a 16-channel electroencephalogram of awake and drowsy adult. During study, photic stimulation was performed. Hyperventilation was not performed. Resting electroencephalogram consists of 20 to 30 low microvolt 4 to 5 Hz high delta mixed with low theta activity seen at parietal and occipital leads. Anteriorly, fast activity superimposed with 2 to 3 Hz delta activities seen. EKG artifact contaminated the background rhythm. The photic stimulation did not evoke driving response noted at 2 to 20 Hz. The background from the beginning to the end. IMPRESSION: This is an abnormal electroencephalogram because of persistent slowing throughout the record suggestive of bilateral cerebral dysfunction. This is probably secondary to metabolic, vascular, or degenerative process. Please correlate the finding with neurological and radiological studies. Mane Petit MD
== END 2018-01-09 13:50 | disposition home or self-care (01) ==
LOC: C.ER 11:41 → C.9E 15:25 → C.3T 15:41
PROVIDERS: ADMIT Internal Medicine; ATTEND Internal Medicine
DX: S02.2XXA Fracture of nasal bones, initial encounter for closed fracture (principal); S00.81XA Abrasion of other part of head, initial encounter; W01.0XXA Fall on same level from slipping, tripping and stumbling without subsequent striking against object, initial encounter; E78.00 Pure hypercholesterolemia, unspecified; E78.5 Hyperlipidemia, unspecified; G30.1 Alzheimer's disease with late onset; F07.81 Postconcussional syndrome; I48.2 Chronic atrial fibrillation; F02.80 Dementia in other diseases classified elsewhere, unspecified severity, without behavioral disturbance, psychotic disturbance, mood disturbance, and anxiety; I25.10 Atherosclerotic heart disease of native coronary artery without angina pectoris; F01.50 Vascular dementia, unspecified severity, without behavioral disturbance, psychotic disturbance, mood disturbance, and anxiety; I10 Essential (primary) hypertension; Z86.73 Personal history of transient ischemic attack (TIA), and cerebral infarction without residual deficits; Y92.017 Garden or yard in single-family (private) house as the place of occurrence of the external cause; Y93.H2 Activity, gardening and landscaping; Z79.01 Long term (current) use of anticoagulants
CPT/HCPCS: 36415; 70450; 70486; 70551; 72125; 80053; 82140; 82550; 82607; 82746; 83036; 84146; 84439; 84443; 85025; 85610; 85651; 85730; 86140; 93880; 95812; 97116; 97162; 97165; 97530; 99285; G0378; G8978; G8979; G8987; G8988; J3420